=== PATIENT | male | born 2005 | race Caucasian/White ===

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

== ENCOUNTER 2025-06-07 08:00 | Outpatient (RCR) | payer OTHER, SELFPAY ==
--- NOTE | 2025-03-29 12:30 | PTOPEVAL1 ---
Assessment and note entered by Katlin Choi, PT Evaluation Information Assessment Status Evaluation ICD-10 Condition Codes (PT) Pain in left shoulder M25.512,Pain in right hip M25.551 Onset shoulder ~03/14/2025, hip Subjective Information Right hip pain chronic - only hurts in specific movements like with kicking and rotating hip out. Did kick boxing recently about a month ago and the pain increased so stopped this. left shoulder pain - did stretching and advil after jujitsu so is ok today. main area of pain is front of bicep and sometimes fingers will tingle. Feels like the shoulder is worse than the hip. States just started Jujitsu, and last night threw a hook and shot pain through the arm, pain shot from biceps to palm. Took a couple hours to subside, was initially sharp then was dull after that. Will also get weak in that arm during that time. Pain and issues slowly built, no traumatic event. Most of the time won't feel it while rolling but with getting up will feel it later. Did one season of wrestling in the past, had the same issue but when stopped wrestling this resolved. Reported Pain Level Pain Score 1,0: Self Report Assessment PT Clinical Summary Pt presents with history of chronic right hip pain . He also reports shortly after seeing his doctor he began having left shoulder pain as well. Pt's right hip pain appears to be localized to the anterior bundle of fibers of the gluteus minimus with increased tone and adhesions. He also demonstrates pelvic downslip on the right and pelvic outflare which were addressed with muscle energy techniques for improved alignment. He also shows decreased isolated gluteus medius strength which for his age group and activity level is likely highly related to gluteus minimus compensation. Left shoulder anatomy and cervical anatomy appear WNL, however he does demonstrate asymmetrical tone in the cervical spine at multiple levels, decreased thoracic ROM, rounded shoulder postures, and tipped scapula ismael. He reports greatest discomfort with high impact activities suggestive of irritation of bursa versus cervical muscle strain likely due to poor postural muscle support in cervical and scapulothoracic areas. Pt will benefit greatly from physical therapy for education and correction of alignment, compensatory muscle patterns, strengthening of postural and stability musculature, and assist in appropriate activation during high level activities to reduce strain and pain and meet patient overall goals. Plan of Care Interventions Electrical Stimulation,Hot Pack/Cold Pack,Manual Therapy,Mechanical Traction,Neuro Re-education, Patient/Caregiver Education,Therapeutic Activities ,Therapeutic Exercise,Self-Care/Home Management, Ultrasound,Other Other Interventions Taping, dry needling PT Services Indicated Yes Treatment Frequency and 1x weekly x 10 visits per patient request Duration These treatments will address the objective and functional deficits as defined above. The patient will be advanced safely and appropriately in order for the patient to progress towards his/her prior level of function. Additional exercises will be introduced and as well as a comprehensive home exercise program upon discharge, if needed, ?to ensure carryover of functional gains achieved in the clinic. This treatment plan has been reviewed and agreement upon by the patient.
--- NOTE | 2025-03-29 12:31 | OPREHPOC ---
Outpatient Therapy Plan of Care This is a Multidisciplinary Plan of Care that may contain components documented by all disciplines (PT, OT, and ST.) PT Problem 1 PT Problem #1 Knowledge Deficit PT Goal 1 Goal / Goal Update Pt will be independent in HEP Pt will verbalize understanding of diagnosis and prognosis Target Visit 5 PT Problem 2 PT Problem #2 Pain PT Goal 1 Goal / Goal Update Pt will report greatest pain level at 3/10 or less to improve ADLs and activities PT Goal 2 Goal / Goal Update Pt will report resolution of pain to return to PLOF PT Problem 3 PT Problem #3 Impaired Strength PT Goal 1 Goal / Goal Update Pt will demonstrate gluteus medius strength of 4+/ 5 for offloading of gluteus minimus Target Visit 5 PT Goal 2 Goal / Goal Update Pt will demonstrate gluteus medius strength of 5/5 for improved function and prevent compensatory patterns. Target Visit 10 PT Problem 4 PT Problem #4 Impaired Sensation PT Goal 1 Goal / Goal Update Pt will report ability to use LUE in high level activities such as boxing without pain to return to PLOF Target Visit 5 PT Goal 2 Goal / Goal Update Pt will report ability to initiate new jujitsu regiment without irritation to show improved postural strength. Target Visit 10
== END 2025-06-25 23:59 | disposition home or self-care (01) ==
LOC: ANHHIPT 08:00
PROVIDERS: Visit Provider Physician Assistant
DX: M25.551 Pain in right hip (principal); G89.29 Other chronic pain
CPT/HCPCS: 97014; 97035; 97110; 97112; 97140; 97161; 97530; G0283